=== PATIENT | female | born 1995 | race African-American/Black ===

== ENCOUNTER 2016-11-14 17:07 | Emergency (ER) | payer OTHER ==
[~2016-11-14] VITALS: Ht 157.5 cm; Wt 68.0 kg
[2016-11-14 17:44] VITALS: BP 115/72
[2016-11-14 19:22] LABS: Basophils # (auto) 0 uL; Basophils % (auto) 0.1 % (0.0-2.0); CONDITION Y; Eosinophils # (auto) 0 uL; Hematocrit 36.3 % (36.0-46.0); Hemoglobin 12.2 g/dL (12.2-16.2); Mean Corpuscular Hemoglobin 31.5 pg (28.0-32.0); Mean Corpuscular Hgb Conc. 33.7 g/dL (32.0-36.0); Mean Corpuscular Volume 93.4 fL (80.0-100.0); Mean Platelet Volume 9.2 fL (7.4-10.4); Monocytes # (auto) 0.3 uL; Monocytes % (auto) 2.3 % (0.0-12.0); Neutrophils # (auto) 11.3 uL; Neutrophils % (auto) 89.6 % (37.0-80.0); Platelet Count (auto) 220 10^3/uL (140-450); Red Cell Distribution Width 13.1 % (11.6-16.0); White Blood Cell 12.7 10^3/uL (4.4-10.8)
[2016-11-14 19:48] LABS: Albumin 3.8 g/dL (3.4-5.0); BUN/Creatinine Ratio 9.8; Bilirubin, Total 1.1 mg/dL (0.2-1.0); Calcium 9.2 mg/dL (8.5-10.1); Potassium 3.4 mmol/L (3.5-5.1); Total Protein 7.4 g/dL (6.4-8.2)
== END 2016-11-15 00:23 | disposition left against medical advice (07) ==
LOC: EDBD 17:07 → ER 17:14
DX: R10.9 Unspecified abdominal pain (principal); Z53.21 Procedure and treatment not carried out due to patient leaving prior to being seen by health care provider
CPT/HCPCS: 36415; 80053; 82150; 83690; 85025

== ENCOUNTER 2018-08-22 09:45 | Observation (INO) | payer OTHER ==
[~2018-08-22] VITALS: Ht 154.9 cm; Wt 90.7 kg
[2018-08-22 12:13] LABS: Alcohol, Urine < 3.0 mg/dL (0-5); Amphetamine Screen, Urine NEGATIVE (NEGATIVE); Barbiturate Scree,Urine NEGATIVE (NEGATIVE); Benzodiazephine Screen, Urine NEGATIVE (NEGATIVE); Cannabinoid Screen, Urine POSITIVE (NEGATIVE); Cocaine Screen, Urine NEGATIVE (NEGATIVE); Opiate Scree,Urine NEGATIVE (NEGATIVE); Phencyclidine Screen, Urine NEGATIVE (NEGATIVE)
== END 2018-08-22 12:18 | disposition home or self-care (01) | DRG 566 ==
LOC: LDRP 09:45
PROVIDERS: ADMIT Obstetrics & Gynecology; ATTEND Obstetrics & Gynecology
DX: O42.92 Full-term premature rupture of membranes, unspecified as to length of time between rupture and onset of labor (principal); O99.323 Drug use complicating pregnancy, third trimester; O99.283 Endocrine, nutritional and metabolic diseases complicating pregnancy, third trimester; E03.9 Hypothyroidism, unspecified; F12.90 Cannabis use, unspecified, uncomplicated; Z87.891 Personal history of nicotine dependence; Z3A.38 38 weeks gestation of pregnancy
CPT/HCPCS: 59025; 76805; 76818; 80307; 81002; G0378

== ENCOUNTER 2018-08-23 12:23 | Observation (INO) | payer OTHER | END 2018-08-23 14:50 | disposition home or self-care (01) | DRG 566 | LOC: LDRP 12:23 | PROVIDERS: ADMIT Specialist; ATTEND Specialist | DX: O26.893 Other specified pregnancy related conditions, third trimester (principal); F12.90 Cannabis use, unspecified, uncomplicated; O99.323 Drug use complicating pregnancy, third trimester; Z3A.38 38 weeks gestation of pregnancy; Z87.891 Personal history of nicotine dependence | CPT/HCPCS: 59025; 76818; 81002; G0378 ==

== ENCOUNTER 2019-06-27 09:14 | Emergency (ER) | payer OTHER ==
[~2019-06-27] VITALS: Ht 152.4 cm; Wt 89.8 kg
[2019-06-27 09:32] VITALS: BP 117/79
== END 2019-06-27 09:55 | disposition home or self-care (01) ==
LOC: ER 09:14
DX: L02.414 Cutaneous abscess of left upper limb (principal); F17.210 Nicotine dependence, cigarettes, uncomplicated

== ENCOUNTER 2019-06-29 14:02 | Emergency (ER) | payer OTHER ==
[~2019-06-29] VITALS: Ht 152.4 cm; Wt 89.8 kg
[2019-06-29 14:33] VITALS: BP 128/77
== END 2019-06-29 15:37 | disposition home or self-care (01) ==
LOC: ER 14:02
DX: L02.414 Cutaneous abscess of left upper limb (principal)
CPT/HCPCS: 10060

== ENCOUNTER 2019-07-01 11:22 | Emergency (ER) | payer OTHER ==
[~2019-07-01] VITALS: Ht 152.4 cm; Wt 89.8 kg
[2019-07-01 11:29] VITALS: BP 111/74
== END 2019-07-01 12:12 | disposition home or self-care (01) ==
LOC: ER 11:23
DX: Z48.01 Encounter for change or removal of surgical wound dressing (principal); F17.210 Nicotine dependence, cigarettes, uncomplicated

== ENCOUNTER 2020-02-09 22:06 | Emergency (ER) | payer OTHER | END 2020-02-09 23:13 | disposition left against medical advice (07) | LOC: ER 22:06 | DX: K64.9 Unspecified hemorrhoids (principal); Z53.21 Procedure and treatment not carried out due to patient leaving prior to being seen by health care provider ==

== ENCOUNTER 2020-05-19 16:20 | Emergency (ER) | payer OTHER ==
[~2020-05-19] VITALS: Ht 154.9 cm; Wt 89.8 kg
[2020-05-19 16:21] VITALS: BP 122/47
[2020-05-19] MEDS ORDERED: cefTRIAXone SOD 1,000 MG VL IM ONE (17:00)
[2020-05-19] MEDS ORDERED: ACETAMINOPHEN 500 MG TAB PO ONE (17:00)
== END 2020-05-19 17:54 | disposition home or self-care (01) ==
LOC: ER 16:20
DX: H66.93 Otitis media, unspecified, bilateral (principal); J03.90 Acute tonsillitis, unspecified; F17.210 Nicotine dependence, cigarettes, uncomplicated; F12.10 Cannabis abuse, uncomplicated
CPT/HCPCS: 96372; 99283; J0696

== ENCOUNTER 2022-02-11 10:30 | Observation (INO) | payer OTHER | END 2022-02-11 13:21 | disposition home or self-care (01) | LOC: LDRP 10:30 | PROVIDERS: ADMIT Obstetrics & Gynecology Obstetrics; ATTEND Obstetrics & Gynecology Obstetrics | DX: O26.893 Other specified pregnancy related conditions, third trimester (principal); R10.2 Pelvic and perineal pain; Z3A.34 34 weeks gestation of pregnancy | CPT/HCPCS: 59025; 81002; 94760; G0378 ==

== ENCOUNTER 2022-03-14 15:20 | Observation (INO) | payer MEDICAID ==
[2022-03-14 17:06] LABS: Amphetamine Screen, Urine NEGATIVE (NEGATIVE); Barbiturate Scree,Urine NEGATIVE (NEGATIVE); Benzodiazephine Screen, Urine NEGATIVE (NEGATIVE); Cannabinoid Screen, Urine NEGATIVE (NEGATIVE); Cocaine Screen, Urine NEGATIVE (NEGATIVE); Opiate Scree,Urine NEGATIVE (NEGATIVE); Phencyclidine Screen, Urine NEGATIVE (NEGATIVE)
[2022-03-14] MEDS ORDERED: PREN-96 OR (18:43)
== END 2022-03-14 19:09 | disposition home or self-care (01) ==
LOC: UNDOADMOB 15:20 → LDRP 15:20
PROVIDERS: ADMIT Obstetrics & Gynecology; ATTEND Obstetrics & Gynecology
DX: O62.9 Abnormality of forces of labor, unspecified (principal); O36.8130 Decreased fetal movements, third trimester, not applicable or unspecified; Z3A.38 38 weeks gestation of pregnancy; Z79.899 Other long term (current) drug therapy
CPT/HCPCS: 59025; 76805; 76818; 80307; 81002; 94760; G0378

== ENCOUNTER 2022-09-01 20:47 | Emergency (ER) | payer MEDICAID ==
[~2022-09-01] VITALS: Ht 154.9 cm; Wt 89.5 kg
[~2022-09-01 20:47] MED LIST: PREN-96 OR
[2022-09-01 21:04] VITALS: BP 122/75
== END 2022-09-02 00:45 | disposition left against medical advice (07) ==
LOC: ER 20:50
DX: J02.9 Acute pharyngitis, unspecified (principal); Z53.21 Procedure and treatment not carried out due to patient leaving prior to being seen by health care provider

== ENCOUNTER 2023-11-29 19:13 | Emergency (ER) | payer MEDICAID ==
[~2023-11-29] VITALS: Ht 154.9 cm; Wt 98.1 kg
[2023-11-29 19:24] VITALS: BP 130/68; PULSE 108; RESP 16; O2SAT 98
[2023-11-29] MEDS: DexAMETHasone SOD PHOS 10MG/1ML VIAL INJ IM ONE (21:33)
[2023-11-29] MEDS ORDERED: CEPH500C PO (21:33)
[2023-11-29] MEDS ORDERED: HYD25TP TOP (21:33)
== END 2023-11-29 21:42 | disposition home or self-care (01) ==
LOC: ER 19:13
DX: S80.861A Insect bite (nonvenomous), right lower leg, initial encounter (principal); F17.210 Nicotine dependence, cigarettes, uncomplicated; F15.90 Other stimulant use, unspecified, uncomplicated; Z79.899 Other long term (current) drug therapy; W57.XXXA Bitten or stung by nonvenomous insect and other nonvenomous arthropods, initial encounter; Y93.89 Activity, other specified; Y92.89 Other specified places as the place of occurrence of the external cause; Y99.8 Other external cause status
CPT/HCPCS: 96372; 99283; J1100